=== PATIENT | female | born 1970 | race Caucasian/White ===

== ENCOUNTER 2016-09-17 10:01 | Emergency (ER) | payer OTHER ==
[~2016-09-17] VITALS: Ht 170.2 cm; Wt 90.7 kg
[~2016-09-17 10:01] MED LIST: LISINOPRIL20 M1 PO; MECLIZINE HCL25 MG PO; TRANSDERM-SCOP1 EACH TOP; ZOFRAN ODT4 M1 SL
[2016-09-17 10:16] VITALS: BP 158/101
[2016-09-17] MEDS ORDERED: PRAVACHOL20 M2 PO (11:10)
--- NOTE | 2016-09-17 11:53 | ED UPPER/LOWER EXTREMITY COMPL ---
History of Present Illness General Chief Complaint: Lower Extremity Problems Stated Complaint: R LEG PAIN "SOMETHING POPPED BEHIND MY KNEE" Source: patient Exam Limitations: no limitations Vital Signs & Intake/Output Vital Signs & Intake/Output Vital Signs Date Time Temp Pulse Resp B/P Pulse O2 O2 Flow FiO2 Ox Delivery Rate 09/17 1016 97.0 82 16 158/101 99 Room Air Allergies Coded Allergies: No Known Allergies (07/24/16) Reconcile Medications Ketorolac Tromethamine 10 MG TABLET 1 TAB PO Q6P PRN CALF PAIN PT RECEIVED IM KETOROLAC IN ED. 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 Triage Nurses Notes Reviewed? yes : No Patient currently breastfeeds: No HPI: Patient presents for evaluation of a sudden onset of right upper calf pain that occurred between 9:30 and 10:00 this morning while at work. Patient was pulling a pallet naomi down a ramp when she felt a sudden sharp pop in the calf like she ran into something. Since then she is a constant sharp severe pain that gets worse with palpation and attempts to ambulate. Past History Travel History Traveled to [place] past 21 day No Medical History Any Pertinent Medical History? 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 No Review of Systems Review of Systems Constitutional: Reports: no symptoms. EENTM: Reports: no symptoms. Respiratory: Reports: no symptoms. Cardiovascular: Reports: no symptoms. Gastrointestinal/Abdominal: Reports: no symptoms. Genitourinary: Reports: no symptoms. Musculoskeletal: Reports: see HPI. Skin: Reports: no symptoms. Neurological/Psychological: Reports: no symptoms. Hematologic/Endocrine: Reports: no symptoms. Immunological: Reports: no symptoms. All Other Systems: Reviewed and Negative Physical Exam Physical Exam General Appearance: SEE BELOW Comments: Gen.: Well-nourished, well-developed, no acute respiratory distress. Head: Normocephalic, atraumatic. Eyes: Normal inspection bilaterally Ears: Normal inspection bilaterally Nose: Normal inspection, nasal cannula in place Throat/mouth : Moist mucosa Neck: Supple, full range of motion, no goiter Heart: Regular rate and rhythm Lungs: Quiet respirations Back: Normal range of motion Extremities: Right lower extremity: Tenderness of the proximal calf with mild soft tissue swelling, right lower extremity is neurovascular intact distally. Pain worsens with dorsi flexion of the right foot. Neurologic: Cranial nerves grossly intact, speech is clear Skin: warm and dry Psychiatric: Calm, cooperative, no apparent delusions or hallucinations Diagram Legs Front/Back 1) Area of pain and tenderness Progress Differential Diagnosis: tendon injury, MUSCLE TEAR Plan of Care: Orders Procedure Date/time Status Durable Medical Equipment 09/17 1204 Active Rest, orthopedic follow up (SARMAD OCAMPO,JEISON Dominguez) Departure Departure Disposition: HOME OR SELF CARE Condition: Stable Clinical Impression Primary Impression: Muscle tear Referrals: RUYD OCAMPO,ALEXIA LARSON APRN (PCP/Family) Additional Instructions: Rest, no exertion or excessive ambulation. Immobilizer and crutches as needed. 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 Otherwise Follow-up with Dr. Pelletier tomorrow. Notify your primary care doctor of this emergency department visit and treatment plan. Return if any concerns or sudden worsening. Thank you for choosing the [facility] Emergency Department for your care. It was a pleasure to serve you today. Jeison Vaughn M.D. [facility] Departure Forms: Customer Survey EMPLOYEE INDUSTRIAL ACCIDENT General Discharge Information Prescriptions: Current Visit Scripts Ketorolac Tromethamine 1 TAB PO Q6P PRN CALF PAIN #16 TAB PT RECEIVED IM KETOROLAC IN ED.
[2016-09-17] MEDS ORDERED: KETOROLAC TROME10 M1 PO (13:00)
== END 2016-09-17 13:00 ==
LOC: ERH 10:01
DX: S86.111A Strain of other muscle(s) and tendon(s) of posterior muscle group at lower leg level, right leg, initial encounter (principal); X58.XXXA Exposure to other specified factors, initial encounter
CPT/HCPCS: 96372; J1885